=== PATIENT | female | born 1945 | race Caucasian/White ===

== ENCOUNTER 2021-04-25 00:45 | Day surgery (SDC) | payer MEDICARE, SELFPAY ==
[2021-04-24 08:44] VITALS: BMI 22.1
--- NOTE | 2021-04-24 09:06 | PC.NURSE ---
Report to the Outpatient Waiting Room, entrance under the green pavilion located off [facility], at time __0700 on date __04/25/21 . OR Time: ___0900 . - You and your visitor will be asked a series of questions to screen for COVID 19 for your protection. - A mask is required within the hospital. - Only one visitor is allowed at this time. Patient visitors will be guided where to wait when not with patient. Preoperative COVID Testing Requirements: No COVID Test needed if: (proof is required; if not received patient will have Rapid Test prior to entry) - Patient has received COVID Vaccine at least 14 days prior to procedure date or - Patient has positive COVID test result within last 90 days of surgery date. COVID Test needed if above criteria is not met If not COVID vaccinated a COVID test must be conducted within 72 hours of surgery and patient is asked to isolate self from time of testing until procedure. You will go to the [facility] for your COVID testing. The [facility] [facility] site is located at the corner of [address] [facility]. You will only be called if COVID results are positive and your surgeon may reschedule your elective surgery date. Patients may have clear liquids (water, carbonated beverages, clear teas, apple juice) until 3 hours prior to surgery with a maximum of 20 ounces. - No food from midnight until time of surgery - Infants may have breast milk until 4 hours before surgery, formula 6 hours prior to surgery. - Children will be allowed to drink immediately following surgery. If applicable, please bring a bottle or sippy cup to assist with drinking. Juice, water, soda, and popsicles are readily available. For infants on formula, please bring formula the day of surgery. Pacifiers are allowed. Take the following medications with a SIP of water the morning of surgery: DOFETILIDE Medications to discontinue per physician ELIQUIS-LD 04/21/[address] SHOEMAKER & CARDIOLOGIST Date to take last dose____04/21/21 Please no make-up, nail luxembourgish, hairspray, perfume, deodorant, or body powder the day of surgery. No jewelry (including any body piercings) or valuables the day of surgery, leave them at home. Please take a shower or bath the night before, or the morning of, surgery with an antibacterial soap. Wear comfortable, loose fitting clothing. Children are encouraged to wear pajamas. - Jewelry must be removed prior to entering the operating room. Rings and piercings that are not removed may be cut off. - The hospital will not accept responsibility for valuables. - Please leave all valuables, including medications, at home the day of surgery. If you are going home after surgery, a licensed bus van driver must drive you home. - NO public transportation without another adult. - We recommend that an adult stay with you for 24 hours following discharge. - We also recommend that you do not drive, make important decision, drink alcoholic beverages, or take any drugs that were not prescribed by your health care provider for at least 24 hours after your discharge time. For Pediatric surgeries, we recommend two adults accompany the child home (only one inside the building at this time). Follow any additional instructions given to you from your surgeon. Telephone instructions given to ___PATIENT and asked if any additional questions and then verbalized understanding. Patient advised to call surgeon office or pre surgery nurse liaison [phone] if any additional questions.
[2021-04-25] VITALS (9 sets, daily range): BP systolic 144–189; BP diastolic 70–93; PULSE 41–75; RESP 8–18; TEMP 36.2–36.6; O2SAT 95–100
--- NOTE | 2021-04-25 07:03 | ECG_ITS ---
Measurements Intervals [place] Rate: 44 P: 60 DC: 152 QRS: -17 QRSD: 111 T: 33 QT: 294 QTc: 254 Interpretive Statements SINUS BRADYCARDIA INCOMPLETE RIGHT BUNDLE BRANCH BLOCK DELAYED PRECORDIAL R/S TRANSITION BORDERLINE T WAVE ABNORMALITY- ANT/INF LEADS BASELINE ARTIFACT- V3, V6 ABNORMAL ECG Electronically Signed On 04-25-2021 8:22:37 BUSINESS CONTINUITY ANALYST by Kody Kahn D.O.
[2021-04-25] MEDS: LACTATED RINGERS 1,000 ML 30 ML IV CONT ×3 (07:37→13:18)
--- NOTE | 2021-04-25 07:42 | P.PNAN_ITS ---
Anes - Initial Pre Proc Eval Procedure: Operation Date: 04/25/21 09:00 Proposed Procedures p Bilateral Breast Implant Exchange - Maciel Gardner MD Date/Time: 04/25/21 07:42 Surgeon: Maciel Gardner MD Pre Op Diagnosis: breast implant rupture Patient Data Age: 75 Gender: F Height: 1.75 m Weight: 68 kg Allergies Allergy/AdvReac Type Severity Reaction Status Date / Time ampicillin Allergy Unknown Rash Verified 04/25/21 07:25 Iodinated Contrast Media Allergy Unknown Hives Verified 04/25/21 07:25 lidocaine Allergy Unknown Swelling Verified 04/25/21 07:25 penicillin G Allergy Unknown Rash Verified 04/25/21 07:25 codeine AdvReac Unknown Nausea and Verified 04/25/21 07:25 Vomiting Home Medications Medication Instructions Recorded Confirmed Type apixaban 5 mg tablet 5 mg PO BID 01/23/21 04/25/21 History diltiazem HCl 120 mg 120 mg PO HS 01/23/21 04/24/21 History capsule,extended release 12 hr dofetilide 500 mcg capsule 500 mcg PO Q12H 01/23/21 04/24/21 History ondansetron HCl 4 mg tablet 4 mg PO Q6H PRN #30 tablet 04/09/21 04/24/21 Rx tramadol 50 mg tablet 50 mg PO Q6H PRN #15 tablet 04/09/21 04/24/21 Rx acetaminophen [Acetaminophen Extra 1,000 mg PO Q6H PRN 04/24/21 04/24/21 History Strength] polyethylene glycol 3350 [Miralax] 17 g PO DAILY PRN 04/24/21 04/24/21 History Patient hx anesthesia problems: post op nausea/vomiting Family hx anesthesia problems: none Results Review: All pre-operative results and documents have been reviewed as part of the pre-operative evaluation. [facility] Past Medical History Medical History (Updated 04/24/21 @ 11:38 by James Henderson DO) Atrial fibrillation History of blood clots Hypertension ISAURA (obstructive sleep apnea) Surgical History Surgical History (Updated 04/24/21 @ 11:38 by James Henderson DO) H/O: hysterectomy History of appendectomy History of cholecystectomy History of mastectomy, subtotal Family History Family History Father Cerebrovascular accident Sibling Heart disease Cancer Social History Social History Smoking status: Never smoker Alcohol intake: never Substance use: never Living arrangements: with family Additional living arrangements comments: [facility] Spiritual care concerns: No Anes - Eval Final PreProcedure Day of Procedure 04/25/21 07:42 Patient weight: normal Heart: regular rate and rhythm Lungs: clear to auscultation and normal air movement Airway: Mallampati scale class II Neurological: alert and oriented Last oral intake: >/= 8 hours ASA classification: III Emergent: no Anesthetic plan: proceed Anesthesia type and monitoring: general LMA and standard monitoring Results Review: All pre-operative results and documents have been reviewed as part of the pre-operative evaluation. Informed Consent: The patient's anesthetic plan and its attendant risks and benefits were discussed with the patient/family/POA. Questions were solicited and answers provided to the satisfaction of the patient/family/POA.
--- NOTE | 2021-04-25 08:32 | WPDHPUPDATE1 ---
History and Physical Update Update Date/Time: 04/25/21 08:32 History and Physical has been reviewed, including an updated exam of the patient. There are NO changes in the patient's condition. Risks, benefits, and alternatives have been discussed and questions answered. Patient agrees to proceed with procedure.
--- NOTE | 2021-04-25 08:51 | W.PM.PROC2 ---
Procedure Note - Detailed Date of Procedure 04/25/21 Pre-op Diagnosis Breast implant rupture Acquired breast deformity History bilateral partial mastectomy Post-op Diagnosis same Procedure Performed Bilateral capsulectomy Bilateral implant material removal Bilateral breast augmentation Surgeon Maciel Gardner MD Findings Patient has had difficulty with lidocaine. Had a lengthy discussion with the patient in elected to proceed with preservative-free bupivacaine. Old Implants Subfascial 225cc New Implants Bilateral Natquynh Inspira SoftTouch 360cc Right REF# [id number] SN [id number] Left REF# [id number] SN [id number] Description of Procedure Preoperatively the risks, benefits, alternatives were again discussed in extensive detail. All questions answered to her satisfaction. Consent was obtained. Patient was taken to the operating room placed supine on the operating room table. Anesthesia provided by anesthesiology and prepped and draped in a standard sterile fashion. Surgical time-out was taken. 0.5% bupivacaine was used to anesthetize as a field block. Tegaderm nipple Rainey were used. A 15 blade used to excise the previous IMF scar which was slightly extended. Dissection was continued down to capsules identified and I removed the majority of the capsule. Implant all implant material was removed. I copiously irrigated with than 3 L saline containing solution. Hemoderm was used with time for hemostasis. I then irrigated with 1.5 L of saline solution. Verified strict hemostasis. I copiously irrigated with triple antibiotic Betadine solution. Wash my gloves. Used a Mcdaniel funnel and using a no-touch technique the implant was introduced into the pocket. I closed using 2-0 Vicryl followed by 3-0 Monocryl in a running subcuticular 4-0 Monocryl. Final closure was tissue glue. Dressings were placed. Patient was woken taken to the PACU without difficulty. All instrument sponge counts were correct at the end of the case. Estimated Blood Loss 100 Drains No Packing No Pathology yes (Bilateral capsules) Complications No immediate complications Condition stable Disposition PACU
[2021-04-25] MEDS: ceFAZolin 2 GM/D5W 50 ML 2 GM/50 ML BAG IVPB (09:20)
[2021-04-25] MEDS: BUPIVACAINE HCL 0.25% PF 30 ML VIAL 60 ML INFILTRATE (09:23)
[2021-04-25] MEDS: TRANEXAMIC ACID 1,000MG/ISO100 1,000 MG/100 ML BAG 200 MG IVPB (09:23)
--- NOTE | 2021-04-25 10:19 | PHAR ---
BUPIVICAINE ORDERED, LIDOCAINE ALLERGY. AWARE. DR SMITH FELT IT WAS FROM THE PRESERVATIVE & PRESERVATIVE FREE BUPIVICAINE WAS USED.
--- NOTE | 2021-04-25 10:39 | SUR.OPER ---
[facility] 360CC RIGHT EXP 2024-03-20, LOT [id number] LEFT EXP 2024-08-22, LOT [id number].
--- NOTE | 2021-04-25 10:50 | SUR.OPER ---
LATE ENTRY/DR MARTINEZ AND DR SHOEMAKER AWARE OF PATIENTS LIDOCAINE ALLERGY IN PRE OP. DR MARTINEZ REQUESTED PRESERVATIVE FREE BUPIVACAINE AND DR SHOEMAKER IN AGREEMENT. 0.25% BUPIVACAINE PLAIN PF TOTAL 60ML TO STERILE FIELD AND VIALS VERIFIED PER Janelle VANEGAS RN AND Geno ALMEIDAA. [place] LOVE CRNA AWARE.
[2021-04-25] MEDS: fentaNYL CITRATE INJ (*CRX) 100 MCG/2 ML VIAL 25 MCG IV PUSH (11:50)
--- NOTE | 2021-04-25 11:52 | SUR.PHASEI ---
Simple mask removed at 1152.
[2021-04-25] MEDS: ONDANSETRON INJ 4 MG/2 ML VIAL IV PUSH (13:10)
[2021-04-25] MEDS: diphenhydrAMINE HCl INJ 50 MG/ML VIAL 12.5 MG IV PUSH (13:52)
== END 2021-04-25 14:40 | disposition home or self-care (01) ==
PROVIDERS: Visit Provider Surgery Plastic and Reconstructive Surgery
PROC: (CPT 19342; principal; 2021-04-25 09:00)
DX: T85.43XA Leakage of breast prosthesis and implant, initial encounter (principal); N64.89 Other specified disorders of breast; N60.32 Fibrosclerosis of left breast; N64.59 Other signs and symptoms in breast; Z87.898 Personal history of other specified conditions; I10 Essential (primary) hypertension; I48.91 Unspecified atrial fibrillation; G47.33 Obstructive sleep apnea (adult) (pediatric); Z86.718 Personal history of other venous thrombosis and embolism; Z79.01 Long term (current) use of anticoagulants; Y83.8 Other surgical procedures as the cause of abnormal reaction of the patient, or of later complication, without mention of misadventure at the time of the procedure
CPT/HCPCS: 19342; 88304; 93005; A9270; J0690; J1200; J1580; J2250; J2270; J2405; J2704; J3010; J7120